=== PATIENT | female | born 1985 | race Caucasian/White ===

== ENCOUNTER 2017-04-21 15:52 | Emergency (ER) | payer BC ==
[2017-04-21 16:10] VITALS: BP 147/88
[2017-04-21] MEDS ORDERED: diphenhydrAMINE 25 MG Cap PO ONE (16:45)
[2017-04-21] MEDS ORDERED: Famotidine 20 MG Tab PO ONE (16:46)
[2017-04-21] MEDS ORDERED: methylPREDNISolone Sodium Succinate 125 MG/2 ML SDV IM ONE (16:46)
--- NOTE | 2017-04-21 16:51 | EDM.PDOC ---
ED HPI GENERAL MEDICAL PROBLEM - General Chief Complaint: Bite:Animal, Insect Stated Complaint: LEFT FOOT DEER FLY BITE Time Seen by Provider: 04/21/17 16:30 Source of Information: Reports: Patient History Limitations: Reports: No Limitations - History of Present Illness INITIAL COMMENTS - FREE TEXT/NARRATIVE: Patient presents today for insect bite to left foot, pain, edema. Onset: Today Quality: Reports: Ache, Stabbing, Throbbing Severity: Moderate Improves with: Reports: None Worsens with: Reports: Movement Associated Symptoms: Reports: No Other Symptoms denies Pain Score (Numeric/FACES): 0 - Related Data Allergies Allergy/AdvReac Type Severity Reaction Status Date / Time No Known Allergies Allergy Verified 04/21/17 16:19 Home Meds: Home Meds NK [No Known Home Meds] 04/21/17 [History] Past Medical History Other Dermatologic History: Significant localized reaction to insect bites requiring use of steroids. - Past Surgical History Female Surgical History: Reports: Section Social & Family History - Tobacco Use Smoking Status *Q: Never Smoker - Recreational Drug Use Recreational Drug Use: No ED ROS GENERAL - Review of Systems Review Of Systems: See Below Constitutional: Reports: No Symptoms HEENT: Reports: No Symptoms Respiratory: Denies: Shortness of Breath, Wheezing, Cough, Sputum Cardiovascular: Denies: Chest Pain, Blood Pressure Problem, Dyspnea on Exertion , Edema, Lightheadedness, Palpitations, PND, Syncope Endocrine: Reports: No Symptoms GI/Abdominal: Reports: No Symptoms Musculoskeletal: Reports: Foot Pain Skin: Reports: Rash, Erythema Neurological: Denies: Dizziness, Headache, Numbness, Tingling, Weakness Psychiatric: Reports: No Symptoms Hematologic/Lymphatic: Reports: No Symptoms Immunologic: Reports: No Symptoms ED EXAM, ANIMAL BITE - Physical Exam Exam: See Below Text/Narrative:: Selena is an alert, oriented 31 year old female presenting today with acute reaction to horse fly at left dorsum of foot. Exam Limited By: No Limitations General Appearance: Alert, WD/WN, No Apparent Distress Eye Exam: Bilateral Eye: EOMI, Normal Inspection Ears: Normal External Exam, Normal Canal, Hearing Grossly Normal, Normal TMs Nose: Normal Inspection, Normal Mucosa, No Blood Throat/Mouth: Normal Inspection, Normal Lips, Normal Teeth, Normal Gums, Normal Oropharynx, Normal Voice, No Airway Compromise Head: Atraumatic, Normocephalic Neck: Normal Inspection, Supple, Non-Tender, Full Range of Motion. No: Lymphadenopathy (R), Lymphadenopathy (L) Respiratory/Chest: No Respiratory Distress, Lungs Clear, Normal Breath Sounds, No Accessory Muscle Use, Chest Non-Tender Cardiovascular: Normal Peripheral Pulses, Regular Rate, Rhythm, No Edema, No Murmur, No Rub Peripheral Pulses: 2+: Radial (L), Radial (R), Dorsalis Pedis (L), Dorsalis Pedis (R) Back Exam: Normal Inspection, Full Range of Motion. No: CVA Tenderness (R), CVA Tenderness (L) Extremities: Normal Inspection, Normal Range of Motion, Non-Tender, No Pedal Edema, Normal Capillary Refill Neurological: Alert, Oriented, CN II-XII Intact, Normal Cognition, Normal Gait, Normal Reflexes, No Motor/Sensory Deficits Psychiatric: Normal Affect, Normal Mood Skin Exam: Normal Color, Warm/Dry, Rash, Other (Insect bite to left dorsum of foot, erythema, redness 10 cm round. ) Lymphadenopathy: Bilateral: No Adenopathy Lymphatic: No Adenopathy Course - Vital Signs Last Recorded V/S: Last Vital Signs Temp 37.1 C 04/21/17 16:09 Pulse 74 04/21/17 16:09 Resp 16 04/21/17 16:09 BP 147/88 H 04/21/17 16:09 Pulse Ox 99 04/21/17 16:09 - Orders/Labs/Meds Meds: Medications Discontinued Medications Generic Name Dose Route Start Last Admin Trade Name Freq PRN Reason Stop Dose Admin Diphenhydramine HCl 50 mg 04/21/17 16:45 04/21/17 17:13 Benadryl PO 04/21/17 16:46 50 mg ONETIME ONE Administration Famotidine 20 mg 04/21/17 16:46 04/21/17 17:15 Pepcid PO 04/21/17 16:47 20 mg ONETIME ONE Administration Methylprednisolone Sodium Succinate 125 mg 04/21/17 16:46 04/21/17 17:15 Solu-Medrol IM 04/21/17 16:47 125 mg ONETIME ONE Administration - Re-Assessments/Exams Free Text/Narrative Re-Assessment/Exam: 04/21/17 4805 Patient reports improvement of pain. Departure - Departure Time of Disposition: 16:51 Disposition: Home, Self-Care 01 Condition: Good Clinical Impression: Insect bite - Discharge Information Instructions: Insect Bite, [id number] Referrals: PCP,None [Primary Care Provider] - Forms: ED Department Discharge Additional Instructions: You have suffered a localized reaction to a horse fly. You were given solumedrol 125mg IM for inflammation and pain. Benadryl and pepcid for histamine reaction. You can continue to take benadryl 50 mg PO three times a day for 3 days or until better. You can also take pepcid to assist with histamine reaction Fill and take prednisone 40 mg PO for 5 days as directed. Return for worsening, signs of infection, issues or concerns. - Assessment/Plan Assessment:: Insect bite left dorsum foot Histamine reaction Plan: Localized reaction to a horse fly. Patient given solumedrol 125mg IM for inflammation and pain. Benadryl and pepcid for histamine reaction. She can continue to take benadryl 50 mg PO three times a day for 3 days or until better. She can also take pepcid to assist with histamine reaction Fill and take prednisone 40 mg PO for 5 days as directed. Return for worsening, signs of infection, issues or concerns.
== END 2017-04-21 17:30 | disposition home or self-care (01) ==
LOC: JP.ED 15:52
DX: S90.862A Insect bite (nonvenomous), left foot, initial encounter (principal); W57.XXXA Bitten or stung by nonvenomous insect and other nonvenomous arthropods, initial encounter
CPT/HCPCS: 96372; 99282; A9270; J2930